=== PATIENT | female | born 1990 | race Caucasian/White ===

== ENCOUNTER 2016-04-05 17:16 | Outpatient (CLI) | payer OTHER ==
[~2016-04-05] VITALS: Ht 170.2 cm; Wt 70.9 kg
[~2016-04-05 17:16] MED LIST: PREN1TAB79 PO
[2016-04-05 17:39] VITALS: BP 115/58; PULSE 89; RESP 18; Ht 170.2 cm; Wt 70.9 kg
[2016-04-05 18:18] LABS: BASOPHILS % 0.3 % (0.0-2.0); EOSINOPHILS % 0.1 % (0.0-7.0); HEMATOCRIT 34.5 % (37.0-47.0); HEMOGLOBIN 11.4 g/dl (12.0-16.0); LYMPHOCYTES # 1.9 10^3/ul (0.8-2.9); LYMPHOCYTES % 22.5 % (15.0-51.0); MEAN CORPUSCULAR HGB CONC 33.2 g/dl (32.0-37.0); MEAN CORPUSCULAR VOLUME 87.4 fl (82.0-101.0); MEAN PLATELET VOLUME 8.7 fl (7.4-10.4); MONOCYTE # 0.5 10^3/ul (0.3-0.9); MONOCYTES % 5.4 % (0.0-11.0); NEUTROPHIL # 6.1 10^3/ul (1.6-7.5); NEUTROPHILS % 71.7 % (39.0-77.0); PLATELET COUNT 240 10^3/UL (140-440); RED BLOOD COUNT 3.94 10^6/ul (4.20-5.40); RED CELL DISTRIBUTION WIDTH 15.4 % (11.5-14.5); UNCORRECTED WBC 8.4 10^3/ul (4.8-10.8); WHITE BLOOD COUNT 8.4 10^3/ul (4.8-10.8)
[2016-04-05 18:20] LABS: CONDITION 1; LH ANALYZER COMMENTS 1
--- NOTE | 2016-04-05 18:29 | RADRPT ---
AMENDMENT: 04/05/2016 7:17:55 PM Kamran Brooks M.D No evidence of placenta previa, abruption, or retroplacental hematoma is seen. PROCEDURE: OB ultrasound for biophysical profile CLINICAL INDICATION: Biophysical profile. . TECHNIQUE: Multiple sonographic images of the pelvis were obtained. Transabdominal view of the gr avid uterus are available for review. The images were reviewed on a PACS workstation. COMPARISON: 03/31/2016 of the ultrasound FINDINGS: Single intrauterine gestation. Presentation: cephalic. Placenta: anterior breathing movement = 2/2 tone = 2/2 motion = 2/2 EDU = 2/2 EDU = 11.1 cm heart rate: 138 beats per minute IMPRESSION: Single intrauterine gestation. Biophysical profile 11/07 RPTAT: AADD .Kamran Brooks MD, Date Time Electronically viewed and signed by .Kamran Brooks MD, on 04/05/2016 19:18 .B/
[2016-04-05 18:31] LABS: ALBUMIN 3.4 g/dl (3.3-4.9); INR 0.88; PARTIAL THROMBOPLASTIN TIME 30.9 Sec (25.0-35.0); PROTIME 11.9 Sec (12.2-14.2); PT RATIO 0.9
[2016-04-05 18:34] LABS: ALBUMIN/GLOBULIN RATIO 0.89; BILIRUBIN,INDIRECT 0.2 mg/dl (0-1.1); BILIRUBIN,TOTAL 0.2 mg/dl (0.2-1.3); CREATININE 0.73 mg/dl (0.44-1.00); TOTAL PROTEIN 7.2 g/dl (6.1-8.1)
[2016-04-05 18:35] LABS: CALCIUM 9.2 mg/dl (8.4-10.2)
[2016-04-05 19:06] LABS: ADD UMIC YES; URINE BILIRUBIN (Dip) NEGATIVE (NEGATIVE); URINE BLOOD (Dip) TRACE (NEGATIVE); URINE COLOR LT. YELLOW (YELLOW); URINE GLUCOSE (Dip) NEGATIVE (NEGATIVE); URINE KETONES (Dip) NEGATIVE (NEGATIVE); URINE LEUKOCYTE ESTERASE (Dip) 1+ (NEGATIVE); URINE NITRITE (Dip) NEGATIVE (NEGATIVE); URINE TOTAL PROTEIN (Dip) NEGATIVE (NEGATIVE); URINE UROBILINOGEN (Dip) 0.2 E.U./dL (0.1-1.0)
[2016-04-05 19:16] LABS: SQUAMOUS EPITHELIAL CELL,UR FEW; URINE RBCS 0-2 /HPF (0)
--- NOTE | 2016-04-05 20:21 | QN ---
Documentation Comment 25 years old with IUP at 35 weeks and 2 days with care with Dr. Small was sent from the office today due to spotting and brownish vaginal discharge noted today after she wiped herself. She reports some mild cramps as well. Denies any prior intercourse. Denies any LOF or decreased movement. Her course was non complicated. RH positive. GA: A&O, NAD Abdomen: Soft, non tender, gravid Fundal height consistent with the dates Extremities: No calf tendeness, no click, no edema NST: Cat 1 Occasional rare contractions seen SVE: Closed/ Posterior/ Long HB; 11.4 CMP : Normal BPP: 11/07 ROM test: Negative Ultrasound: No evidence of previa or abruption. RH: Positive Hematology - 72 Hrs Test 04/05/16 18:05 Basophils # 0.010^3/ul (0.0-0.1) Basophils % 0.3% (0.0-2.0) Blood Morphology Comment Eosinophils # 0.010^3/ul (0.0-0.5) Eosinophils % 0.1% (0.0-7.0) Hematocrit 34.5% (37.0-47.0) L Hemoglobin 11.4g/dl (12.0-16.0) L Lymphocytes # 1.910^3/ul (0.8-2.9) Lymphocytes % 22.5% (15.0-51.0) Mean Corpuscular Hemoglobin 29.0pg (29.0-33.0) Mean Corpuscular Hemoglobin Concent 33.2g/dl (32.0-37.0) Mean Corpuscular Volume 87.4fl (82.0-101.0) Mean Platelet Volume 8.7fl (7.4-10.4) Monocytes # 0.510^3/ul (0.3-0.9) Monocytes % 5.4% (0.0-11.0) Neutrophils # 6.110^3/ul (1.6-7.5) Neutrophils % 71.7% (39.0-77.0) Nucleated Red Blood Cells # 0.010^3/ul (0.0-0.0) Nucleated Red Blood Cells % 0.0/100WBC (0.0-0.0) Platelet Count 52361^3/UL (140-440) Red Blood Count 3.9410^6/ul (4.20-5.40) L Red Cell Distribution Width 15.4% (11.5-14.5) H White Blood Count 8.410^3/ul (4.8-10.8) Chemistry Test 04/05/16 18:05 Alanine Aminotransferase (ALT/SGPT) 20IU/L (13-69) Albumin 3.4g/dl (3.3-4.9) Albumin/Globulin Ratio 0.89 Alkaline Phosphatase 148IU/L (42-121) H Anion Gap 13 (8-16) Aspartate Amino Transf (AST/SGOT) 27IU/L (15-46) Blood Urea Nitrogen 12mg/dl (7-20) Calcium Level 9.2mg/dl (8.4-10.2) Carbon Dioxide Level 26mmol/L (21-31) Chloride Level 101mmol/L (97-110) Creatinine 0.73mg/dl (0.44-1.00) Direct Bilirubin 0.00mg/dl (0.00-0.20) Globulin 3.80g/dl (1.3-3.2) H Glucose Level 88mg/dl (70-220) Indirect Bilirubin 0.2mg/dl (0-1.1) Potassium Level 4.0mmol/L (3.5-5.1) Sodium Level 136mmol/L (135-144) Total Bilirubin 0.2mg/dl (0.2-1.3) Total Protein 7.2g/dl (6.1-8.1) Laboratory Tests Test 04/05/16 18:05 04/05/16 18:35 04/05/16 18:45 Activated Partial Thromboplast Time 30.9Sec Alanine Aminotransferase (ALT/SGPT) 20IU/L Albumin 3.4g/dl Albumin/Globulin Ratio 0.89 Alkaline Phosphatase 148IU/L Anion Gap 13 Aspartate Amino Transf (AST/SGOT) 27IU/L Basophils # 0.010^3/ul Basophils % 0.3% Blood Morphology Comment Blood Urea Nitrogen 12mg/dl Calcium Level 9.2mg/dl Carbon Dioxide Level 26mmol/L Chloride Level 101mmol/L Creatinine 0.73mg/dl Direct Bilirubin 0.00mg/dl Eosinophils # 0.010^3/ul Eosinophils % 0.1% Globulin 3.80g/dl Glucose Level 88mg/dl Hematocrit 34.5% Hemoglobin 11.4g/dl INR International Normalized Ratio 0.88 Indirect Bilirubin 0.2mg/dl Lymphocytes # 1.910^3/ul Lymphocytes % 22.5% Mean Corpuscular Hemoglobin 29.0pg Mean Corpuscular Hemoglobin Concent 33.2g/dl Mean Corpuscular Volume 87.4fl Mean Platelet Volume 8.7fl Monocytes # 0.510^3/ul Monocytes % 5.4% Neutrophils # 6.110^3/ul Neutrophils % 71.7% Nucleated Red Blood Cells # 0.010^3/ul Nucleated Red Blood Cells % 0.0/100WBC Platelet Count 39786^3/UL Potassium Level 4.0mmol/L Prothrombin Time 11.9Sec Prothrombin Time Ratio 0.9 Red Blood Count 3.9410^6/ul Red Cell Distribution Width 15.4% Sodium Level 136mmol/L Total Bilirubin 0.2mg/dl Total Protein 7.2g/dl White Blood Count 8.410^3/ul Membranes Rupture NEGATIVE Urine Bilirubin NEGATIVE Urine Clarity CLEAR Urine Color LT. YELLOW Urine Glucose NEGATIVE% Urine Hemoglobin TRACE Urine Ketones NEGATIVE Urine Leukocyte Esterase 1+ Urine Microscopic RBC 0-2/HPF Urine Microscopic WBC 0-2/HPF Urine Nitrite NEGATIVE Urine Specific [place] 1.020 Urine Squamous Epithelial Cells FEW Urine Total Protein NEGATIVE Urine Urobilinogen 0.2 E.U./dL Urine pH 6.5 Assessment: IUP at 35 weeks and 2 days Plan: DC home PTL precaution and [facility] F/u with OB clinic in 1-2 days Laboratory Tests Test 04/05/16 18:05 04/05/16 18:35 04/05/16 18:45 Activated Partial Thromboplast Time 30.9Sec Alanine Aminotransferase (ALT/SGPT) 20IU/L Albumin 3.4g/dl Albumin/Globulin Ratio 0.89 Alkaline Phosphatase 148IU/L Anion Gap 13 Aspartate Amino Transf (AST/SGOT) 27IU/L Basophils # 0.010^3/ul Basophils % 0.3% Blood Morphology Comment Blood Urea Nitrogen 12mg/dl Calcium Level 9.2mg/dl Carbon Dioxide Level 26mmol/L Chloride Level 101mmol/L Creatinine 0.73mg/dl Direct Bilirubin 0.00mg/dl Eosinophils # 0.010^3/ul Eosinophils % 0.1% Globulin 3.80g/dl Glucose Level 88mg/dl Hematocrit 34.5% Hemoglobin 11.4g/dl INR International Normalized Ratio 0.88 Indirect Bilirubin 0.2mg/dl Lymphocytes # 1.910^3/ul Lymphocytes % 22.5% Mean Corpuscular Hemoglobin 29.0pg Mean Corpuscular Hemoglobin Concent 33.2g/dl Mean Corpuscular Volume 87.4fl Mean Platelet Volume 8.7fl Monocytes # 0.510^3/ul Monocytes % 5.4% Neutrophils # 6.110^3/ul Neutrophils % 71.7% Nucleated Red Blood Cells # 0.010^3/ul Nucleated Red Blood Cells % 0.0/100WBC Platelet Count 79764^3/UL Potassium Level 4.0mmol/L Prothrombin Time 11.9Sec Prothrombin Time Ratio 0.9 Red Blood Count 3.9410^6/ul Red Cell Distribution Width 15.4% Sodium Level 136mmol/L Total Bilirubin 0.2mg/dl Total Protein 7.2g/dl White Blood Count 8.410^3/ul Membranes Rupture NEGATIVE Urine Bilirubin NEGATIVE Urine Clarity CLEAR Urine Color LT. YELLOW Urine Glucose NEGATIVE% Urine Hemoglobin TRACE Urine Ketones NEGATIVE Urine Leukocyte Esterase 1+ Urine Microscopic RBC 0-2/HPF Urine Microscopic WBC 0-2/HPF Urine Nitrite NEGATIVE Urine Specific [place] 1.020 Urine Squamous Epithelial Cells FEW Urine Total Protein NEGATIVE Urine Urobilinogen 0.2 E.U./dL Urine pH 6.5 STU ALSTON MD Apr 05, 2016 20:21
--- NOTE | 2016-04-05 21:31 | TRIAGE ---
OB Triage Datetime Report Generated by CPN: 04/05/2016 21:30 Datetime: 04/05/2016 20:04 Stage of : OB Triage Vaginal Exam Dilatation (cms): 0.0 Effacement (%): 0 Station: -3 Vaginal Bleeding: None Cervix, Consistency: Firm Cervix, Position: Posterior Datetime: 04/05/2016 20:00 Labor Evaluation Frequency: 1/ HR Monitor Mode: External Duration (sec)2399: 60 Quality: Mild Pattern: Normal: <= 5 Contractions in 10 Minutes Resting Tone [place]: Relaxed Heart Rate FHR Baseline Rate: 135 Monitor Mode: External US FHR Baseline Changes: No Baseline Change Variability: Moderate 6-25 bpm Accelerations: 15X15 Decelerations: None Category: Category I Datetime: 04/05/2016 19:25 Assessment Type: Triage Maternal Assessment Level of Consciousness: Fully Conscious DTR's/Clonus: DTRs 2+; No Clonus Headache: Denies Blurred Vision: No Respiratory Effort: Unlabored; Regular Rhythm; Equal Expansion Breath Sounds, Left: Clear and Equal Breath Sounds, Right: Clear and Equal Nausea/Vomiting: Denies RUQ Epigastric Pain: Denies Lower Extremities Edema: None Degree: None Upper Extremities Edema: None Degree: None Facial Edema: None Fall Risk Assessment History of Falling: (0) No Secondary Diagnosis: (0) No Ambulatory Aid: (0) Bedrest/Nurse Assist IV Therapy: (0) No Gait: (0) Normal/Bedrest/Immobile Mental Status: (0) Oriented to Own Ability Fall Score: 0 Fall Risk Score Definition: No Risk: No action required Datetime: 04/05/2016 19:00 Vaginal Exam Dilatation (cms): 0.0 Effacement (%): 0 Station: -3 Exam By: Naomi RN Datetime: 04/05/2016 18:50 Labor Evaluation Frequency: Irritability Monitor Mode: External Duration (sec)2399: 30-50 Quality: Mild Pattern: Normal: <= 5 Contractions in 10 Minutes Resting Tone [place]: Relaxed Heart Rate FHR Baseline Rate: 140 Monitor Mode: External US FHR Baseline Changes: No Baseline Change Variability: Moderate 6-25 bpm Accelerations: 15X15 Decelerations: None Category: Category I Pain Assessment Pain Presence: None/Denies Pain Type: N/A Datetime: 04/05/2016 17:45 Monitor Mode: External Resting Tone [place]: Relaxed Heart Rate FHR Baseline Rate: 140 Monitor Mode: External US FHR Baseline Changes: No Baseline Change Variability: Moderate 6-25 bpm Accelerations: 15X15 Decelerations: None Category: Category I Pain Assessment Pain Presence: None/Denies Datetime: 04/05/2016 17:40 Assessment Type: Triage Maternal Assessment Level of Consciousness: Fully Conscious DTR's/Clonus: DTRs 2+; No Clonus Headache: Denies Blurred Vision: No Respiratory Effort: Unlabored; Regular Rhythm; Equal Expansion Breath Sounds, Left: Clear and Equal Breath Sounds, Right: Clear and Equal Nausea/Vomiting: Denies RUQ Epigastric Pain: Denies Lower Extremities Edema: None Degree: None Upper Extremities Edema: None Degree: None Facial Edema: None Fall Risk Assessment History of Falling: (0) No Secondary Diagnosis: (0) No Ambulatory Aid: (0) Bedrest/Nurse Assist IV Therapy: (0) No Gait: (0) Normal/Bedrest/Immobile Mental Status: (0) Oriented to Own Ability Fall Score: 0 Fall Risk Score Definition: No Risk: No action required Datetime: 04/05/2016 17:33 Time of Arrival: 04/05/2016 17:10 EGA: 35.2 Arrived By: Ambulatory Arrived From: Home Chief Complaint: Vag bleeding Movement: Present Contractions: Denies/Absent Rupture of Membranes: Denies Vaginal Bleeding: Moderate Vaginal Discharge: Present Recent Sexual Intercouse: Denies Abdominal Trauma: Not Applicable Patient Complaints: Other Time Provider Notified: 04/05/2016 17:57 Provider Notified: Salceda Initial Plan: NST, OB US for placental position _ BPP, CBC/CMP/PTPTT, ROM + if negative for placen ta previa Pain Assessment Pain Presence: None/Denies Datetime: 04/05/2016 17:30 Stage of : OB Triage Datetime: 03/31/2016 19:16 Fall Score: 0 Fall Risk Score Definition: No Risk: No action required Datetime: 03/31/2016 17:42 Fall Score: 0 Fall Risk Score Definition: No Risk: No action required Datetime: 03/31/2016 17:40 EGA: 34.4
== END 2016-04-05 20:05 | disposition home or self-care (01) ==
LOC: OBT 17:16 → L-D 17:16 → OBT 20:05
PROVIDERS: ATTEND Obstetrics & Gynecology
DX: O26.853 Spotting complicating pregnancy, third trimester (principal); Z3A.35 35 weeks gestation of pregnancy
CPT/HCPCS: 36415; 76818; 80053; 81001; 84112; 85025; 85610; 85730; Z7500; 81003; G0463

== ENCOUNTER 2016-04-17 20:39 | Outpatient (CLI) | payer OTHER ==
[~2016-04-17] VITALS: Ht 170.2 cm; Wt 70.6 kg
[2016-04-17 21:05] VITALS: Ht 170.2 cm; Wt 70.6 kg
[2016-04-17] MEDS ORDERED: FERR325C PO (21:05)
[2016-04-17 21:06] VITALS: BP 105/62; PULSE 80; RESP 18
[2016-04-17 21:28] LABS: URINE BLOOD (Dip) POC 1+ (NEGATIVE)
--- NOTE | 2016-04-17 22:15 | RADRPT ---
PROCEDURE: US biophysical profile. CLINICAL INDICATION: Vaginal bleeding. TECHNIQUE: Multiple sonographic images of the uterus were obtained. The images were revi ewed on a PACS workstation. COMPARISON: 04/05/2016. FINDINGS: There is a single live intrauterine gestation. heart rate is 134 beats per minute. The position is cephalic. The placenta is anterior grade 1 with no abruption or previa. The EDU is 10.8 cm. (Normal = 5-20 cm.) Breathing Movement: 2 Gross Body Movement: 2 Tone: 2 Qualitative Amniotic Fluid Volume: 2 TOTAL: 8 IMPRESSION: 1. The biophysical score is 8/8. RPTAT: QQ .Mohsen Smallwood MD, MD Date Time Electronically viewed and signed by .Mohsen Smallwood MD, MD on 04/17/2016 22:15 .R/
[2016-04-17 23:17] LABS: ADD UMIC YES; URINE BILIRUBIN (Dip) NEGATIVE (NEGATIVE); URINE BLOOD (Dip) TRACE (NEGATIVE); URINE COLOR LT. YELLOW (YELLOW); URINE GLUCOSE (Dip) NEGATIVE (NEGATIVE); URINE KETONES (Dip) 15 (NEGATIVE); URINE LEUKOCYTE ESTERASE (Dip) 1+ (NEGATIVE); URINE NITRITE (Dip) NEGATIVE (NEGATIVE); URINE TOTAL PROTEIN (Dip) NEGATIVE (NEGATIVE); URINE UROBILINOGEN (Dip) 0.2 E.U./dL (0.1-1.0)
[2016-04-17 23:34] LABS: BACTERIA,URINE FEW; SQUAMOUS EPITHELIAL CELL,UR FEW; URINE RBCS 0-2 /HPF ([, 0])
--- NOTE | 2016-04-18 00:15 | HP ---
Date/Time of Note Date/Time of Note DATE: 04/18/16 TIME: 00:06 OB - History Hx of Present Free Text/Dictation 25 Year-old with SIUP at 36 6/7 wks presents with a chief complaint of brownish vaginal discharge. She has been receiving her care with Dr. Merrill. She states good movement. She denies nausea, vomiting, shortness of breath, chest pain, and abdominal pain between contractions, headache, visual changes, vaginal bleeding or LOF. Care: Good Care Obstetrical Complications: None Medical Complications: None Past Family/Social History * Past Medical, Surgical, Family and Obstetric Histories reviewed from chart. OB Admission Exam Vital Signs Vital Signs Vital Signs Date Time Temp Pulse Resp B/P Pulse Ox O2 Delivery O2 Flow Rate FiO2 04/17/16 21:06 98.0 80 18 105/62 Room Air Physical Exam HEENT: WNL Heart: Rhythm Normal Extremities: Edema Cervical Dilatation: 1cm Effacement: 50% Station: -3 Membranes: Intact Heart Rate: 140's Accelerations: Accelerations Present Decelerations: No Decelerations Varibility: Moderate Contractions on Admission: >10 Minutes Apart Intensity: Mild OB Assessment/Plan Other plan: 25 Year-old with SIUP at 40 1/7 wks. No cx changes in 2hrs F?U. - FHR: No sign of metabolic acidosis- Category I - Continuous EFM, toco - Contractions: Occasional - Reactive NST. BPP: 10/10 - EDU: 10.8 - Pt D/W Dr. Merrill over the phone - Symptoms and sign of labor, preeclampsia, kick count discussed with patient, she voiced understanding. All of her questions answered. Patient was discharged home in stable condition with the appropriate discharge instructions provided. I would like patient to have close follow-up with her primary Ob tomorrow. DESIREE HUDSON Apr 18, 2016 00:15
== END 2016-04-17 23:05 | disposition home or self-care (01) ==
LOC: OBT 20:39 → L-D 20:40 → OBT 23:05
PROVIDERS: ATTEND Obstetrics & Gynecology
DX: O26.893 Other specified pregnancy related conditions, third trimester (principal); N89.8 Other specified noninflammatory disorders of vagina; O46.93 Antepartum hemorrhage, unspecified, third trimester; Z3A.36 36 weeks gestation of pregnancy
CPT/HCPCS: 76818; 81001; 87086; Z7500; 81003; G0463

== ENCOUNTER 2016-05-04 09:51 | Inpatient (IN) | payer OTHER ==
[~2016-05-04 09:51] MED LIST changes: +FERR325C PO
[2016-05-04 09:56] VITALS: BP 125/95; RESP 18
[2016-05-04] MEDS ORDERED: AMPICILLIN 2 GM/NS (PMX) 100 ML ONE (10:07)
[2016-05-04] MEDS ORDERED: OXYTOCIN 30 UNITS/LR 500 ML IV SCH (10:30)
[2016-05-04] MEDS ORDERED: AMPICILLIN 2 GM/NS (PMX) 100 ML IV ONE (10:30)
[2016-05-04] MEDS ORDERED: LIDOCAINE 1% (MPF) 30 ML INJ INJ PRN (10:30)
[2016-05-04] MEDS ORDERED: IBUPROFEN 600 MG TAB PO PRN (10:30)
[2016-05-04] MEDS ORDERED: CARBOPROST 250 MCG INJ IM PRN ×2 (10:30→20:30)
[2016-05-04] MEDS ORDERED: ACETAMINOPHEN/CODEINE #3 TAB PO PRN (10:30)
[2016-05-04] MEDS ORDERED: OXYTOCIN 30 UNITS/LR 500 ML IV PRN ×2 (10:30→20:30)
[2016-05-04] MEDS ORDERED: METHYLERGONOVINE 0.2 MG INJ IM PRN ×2 (10:30→20:30)
[2016-05-04] MEDS ORDERED: LACTATED RINGER'S 1,000 ML IV PRN (10:30)
[2016-05-04] MEDS ORDERED: BUTORPHANOL 2 MG INJ IV PRN ×2 (10:30)
[2016-05-04] MEDS ORDERED: MISOPROSTOL 200 MCG TAB PR PRN ×2 (10:30→20:30)
[2016-05-04 10:34] LABS: BASOPHILS % 0.3 % (0.0-2.0); EOSINOPHILS % 0.4 % (0.0-7.0); HEMATOCRIT 38.3 % (37.0-47.0); LYMPHOCYTES # 2.9 10^3/ul (0.8-2.9); LYMPHOCYTES % 27.4 % (15.0-51.0); MEAN CORPUSCULAR HEMOGLOBIN 29.5 pg (29.0-33.0); MEAN CORPUSCULAR HGB CONC 33.8 g/dl (32.0-37.0); MEAN CORPUSCULAR VOLUME 87.3 fl (82.0-101.0); MEAN PLATELET VOLUME 9.5 fl (7.4-10.4); MONOCYTE # 0.6 10^3/ul (0.3-0.9); MONOCYTES % 5.6 % (0.0-11.0); NEUTROPHIL # 7.1 10^3/ul (1.6-7.5); NEUTROPHILS % 66.3 % (39.0-77.0); PLATELET COUNT 263 10^3/UL (140-440); RED BLOOD COUNT 4.39 10^6/ul (4.20-5.40); RED CELL DISTRIBUTION WIDTH 14.8 % (11.5-14.5); UNCORRECTED WBC 10.8 10^3/ul (4.8-10.8); WHITE BLOOD COUNT 10.8 10^3/ul (4.8-10.8)
[2016-05-04 10:43] LABS: CONDITION 1; LH ANALYZER COMMENTS 1
[2016-05-04] MEDS: LACTATED RINGER'S 1,000 ML IV SCH ×2 (10:51→18:07)
[2016-05-04 10:52] LABS: INR 0.91; PROTIME 12.3 Sec (12.2-14.2)
[2016-05-04 10:53] LABS: PARTIAL THROMBOPLASTIN TIME 32.2 Sec (25.0-35.0)
[2016-05-04] MEDS ORDERED: FENTAnyl 2MCG/ML-ROPIV 0.2% 100 ML ONE (11:06)
[2016-05-04] MEDS: AMPICILLIN 1 GM/NS (PMX) 50 ML IV SCH ×2 (11:10→18:30)
[2016-05-04] MEDS ORDERED: ONDANSETRON 4 MG INJ IV PRN (12:30)
[2016-05-04] MEDS ORDERED: DIPHENHYDRAMINE 50 MG INJ IV PRN (12:30)
[2016-05-04] MEDS ORDERED: NALOXONE (0.4 MG/ML) INJ IV PRN (12:30)
[2016-05-04] MEDS ORDERED: ZOLPIDEM 5 MG TAB PO PRN ×2 (12:30→20:30)
[2016-05-04] MEDS ORDERED: HYDROmorphONE 1 MG/ML SYG IV PRN ×2 (12:30)
[2016-05-04] MEDS ORDERED: FENTAnyl 2MCG/ML-ROPIV 0.2% 100 ML BAG EPI SCH (12:30)
--- NOTE | 2016-05-04 15:45 | HP ---
Date/Time of Note Date/Time of Note DATE: 05/04/16 TIME: 15:36 OB - History Hx of Present Free Text/Dictation 25y.o at 39weeks iun active labor with leaking amniotic fluid leakage VE 3-4CM 80% -2admitted for expectant management Chief Complaint: uterine contractions and leakage of amnioyic fluid Estimated Due Date: May 08, 2016 : 2 Para: 1 Spontaneous : 0 Therapeutic : 0 Care: Good Care Ultrasounds: Normal mid trimester US Obstetrical Complications: None Medical Complications: None Past Family/Social History * Past Medical, Surgical, Family and Obstetric Histories reviewed from chart. Blood Type: A+ Rubella: immune RPR/VDRL: Negative GBS Status: Negative HBsAG: Negative OB Admission Exam Vital Signs Vital Signs Vital Signs Date Time Temp Pulse Resp B/P Pulse Ox O2 Delivery O2 Flow Rate FiO2 05/04/16 09:56 97.6 18 125/95 Room Air Physical Exam HEENT: WNL Heart: Rhythm Normal Lungs: Clear, Equal Abdomen: WNL Extremities: Normal Reflexes: Normal Cervical Dilatation: 3cm Effacement: 75% Station: -2 Membranes: Ruptured Amniotic Fluid: Clear Heart Rate: 140's Accelerations: Accelerations Present Decelerations: No Decelerations Varibility: Moderate Contractions on Admission: < 5 Minutes Apart Intensity: Moderate Last 72 hours Lab Results CBC & BMP 05/04/16 10:00 OB Assessment/Plan Reason for admission: active labor Other Assessment: srom Plan: Expectant Management NASRIN BOSE MD May 04, 2016 15:45
[2016-05-04] MEDS: DEXTROSE 5%-LR 1,000 ML IV SCH ×2 (16:52→18:56)
--- NOTE | 2016-05-04 18:26 | LDN ---
Date/Time of Note Date/Time of Note DATE: 05/04/16 TIME: 18:21 Delivery Summary occiput post rotated gently guided mannually Placenta Delivered: Spontaneously Meconium: Light Perineum intact?: Yes Perineal laceration: 1 Perineal laceration repair: no perineal laceration only hymenal ring tiny lacerated repair with 0000ch gut Anesthesia type: Epidural Estimated blood loss: 100 Sponge & Needle done & correct: Yes All needle counts correct: Yes Any foreign bodies felt in the: No Problems: Delivery Information Sex Sex: male Apgars 1 Minute: 8 5 Minute: 9 Suctioning Nose & mouth suctioned at costa: Yes Delee suction performed: No Umbilical Cord Umbilical cord with: 3 Vessels Cord presentations: no nuchal cord Cord Blood was obtained: Yes (long cord) Mother & Baby Disposition Disposition Mom & Baby to Maternity; Good: Yes Mom transferred to: Other Baby to NICU: No () NASRIN BOSE MD May 04, 2016 18:26
[2016-05-04 20:30] VITALS: BP 125/76; PULSE 86; RESP 20
[2016-05-04] MEDS ORDERED: WITCH HAZEL/GLYCERIN PAD PR PRN (20:30)
[2016-05-04] MEDS ORDERED: OXYCODONE/ASPIRIN (4.88/325) TAB PO PRN (20:30)
[2016-05-04] MEDS ORDERED: LANOLIN 7 GM TUBE TOP PRN (20:30)
[2016-05-04] MEDS ORDERED: BENZOCAINE 20% 56 ML SPRAY TOP PRN (20:30)
[2016-05-04] MEDS: SENNA/DOCUSATE NA (8.6MG/50MG) TAB PO SCH (23:24)
[2016-05-04] MEDS: IBUPROFEN 600 MG TAB PO SCH (23:24)
[2016-05-05] VITALS: BP 115/71; PULSE 89; RESP 18
[2016-05-05 04:10] VITALS: BP_SYST 107; BP_SYST 112; BP_DIAS 70; PULSE 88; RESP 18
[2016-05-05] MEDS: OXYCODONE/ASPIRIN (4.88/325) TAB PO PRN ×2 (04:44→22:11)
[2016-05-05] MEDS: IBUPROFEN 600 MG TAB PO SCH ×4 (06:36→23:43)
[2016-05-05 07:56] LABS: BASOPHILS % 0.3 % (0.0-2.0); EOSINOPHILS % 0.2 % (0.0-7.0); HEMATOCRIT 32.1 % (37.0-47.0); HEMOGLOBIN 10.9 g/dl (12.0-16.0); LYMPHOCYTES # 2.6 10^3/ul (0.8-2.9); LYMPHOCYTES % 22.8 % (15.0-51.0); MEAN CORPUSCULAR HEMOGLOBIN 29.6 pg (29.0-33.0); MEAN CORPUSCULAR HGB CONC 33.9 g/dl (32.0-37.0); MEAN CORPUSCULAR VOLUME 87.4 fl (82.0-101.0); MEAN PLATELET VOLUME 9.3 fl (7.4-10.4); MONOCYTE # 0.6 10^3/ul (0.3-0.9); MONOCYTES % 5.4 % (0.0-11.0); NEUTROPHILS % 71.3 % (39.0-77.0); PLATELET COUNT 201 10^3/UL (140-440); RED BLOOD COUNT 3.68 10^6/ul (4.20-5.40); RED CELL DISTRIBUTION WIDTH 14.5 % (11.5-14.5); UNCORRECTED WBC 11.2 10^3/ul (4.8-10.8); WHITE BLOOD COUNT 11.2 10^3/ul (4.8-10.8)
[2016-05-05 08:05] VITALS: BP 101/57; PULSE 74; RESP 14
[2016-05-05 08:35] LABS: CONDITION 1
[2016-05-05] MEDS: SENNA/DOCUSATE NA (8.6MG/50MG) TAB PO SCH ×2 (09:20→20:50)
--- NOTE | 2016-05-05 14:37 | PN ---
Date/Time of Note Date/Time of Note DATE: 05/05/16 TIME: 14:36 OB Subjective Subjective Subjective no c/o OB Objective Objective Objective vss afebrile fundus firm lochia min calf neg for tenderness OB Assessment/Plan Other Assessment: stable #1 Other plan: d/s home in am NASRIN BOSE MD May 05, 2016 14:37
[2016-05-05 16:50] VITALS: BP 123/75; PULSE 91; RESP 16
[2016-05-05 19:40] VITALS: BP 113/72; PULSE 90; RESP 18
[2016-05-06 04:20] VITALS: BP 121/56; PULSE 67; RESP 18
[2016-05-06] MEDS: IBUPROFEN 600 MG TAB PO SCH ×2 (05:44→12:11)
[2016-05-06 08:05] VITALS: BP 116/72; PULSE 77; RESP 19
[2016-05-06] MEDS ORDERED: DIPHTH/TET/ACEL PERTUSS (ADULT) 0.5 ML VIAL IM* ONE (09:00)
[2016-05-06] MEDS: SENNA/DOCUSATE NA (8.6MG/50MG) TAB PO SCH (09:42)
--- NOTE | 2016-05-06 11:46 | PD.PPDC ---
[employer] SALESPERSON Discharge Instruction Diagnosis Final Diagnosis: s/p vaginal delivery Condition Patient Condition: Stable Diet Diet: Resume Regular Diet Activity/Restrictions Activity: May Shower Restrictions: No Lifting No Sexual Activity Nothing in the Vagina No [place] No Tampons, douche Follow-up Follow-up with Physician: 6, Week/Weeks Return to clinic for [employer] Instructions: Fever greater than 101 Chills Worsening abdominal pain Excessive Vaginal Bleeding More than 2 pads per hour Unable to tolerate diet OB Instructions: Breast Tenderness Depression Blurried Vision Headache NASRIN BOSE MD May 06, 2016 11:46
--- NOTE | 2016-05-06 11:51 | DS ---
Date/Time of Note Date/Time of Note DATE: 05/06/16 TIME: 11:48 Obstetrical Discharge Record Final Diagnosis Final Diagnosis: Term delivered Vaginal Delivery Obstetrical Delivery: Spontaneous, Laceration, Repaired Complications Augmentation: No Induction: No Condition on Discharge Physical Assessment Last Vitals: vss afebrile Voiding: Yes Bowel Movement: Yes Breast: Soft, non-tender Fundus: Firm Calf Tenderness: No Patient Condition: Stable NASRIN BOSE MD May 06, 2016 11:51
== END 2016-05-06 16:40 | disposition home or self-care (01) | DRG 775 ==
LOC: OBT 09:51 → L-D 09:51 → OBT 10:00 → L-D 10:06 → PP1 20:18
PROVIDERS: ADMIT Obstetrics & Gynecology; ATTEND Obstetrics & Gynecology
PROC: 10E0XZZ Delivery of Products of Conception, External Approach (ICD-10-PCS; principal; 2016-05-04)
DX: O80 Encounter for full-term uncomplicated delivery (principal); Z37.0 Single live birth; Z3A.39 39 weeks gestation of pregnancy
CPT/HCPCS: 62319; 85025; 85610; 85730; 86592; 86900; 86901; 87340; 90715; 99464; G0463; J0290; J2405; J2590; J3010; J7120; J7121

== ENCOUNTER 2017-09-06 08:51 | Inpatient (IN) | END 2017-09-09 13:50 | disposition home or self-care (01) | DRG 775 ==